=== PATIENT | male | born 1955 ===

== ENCOUNTER 2018-04-07 19:32 | Emergency (ER) | payer SELFPAY ==
[2018-04-07 19:48] VITALS: BP 137/74; PULSE 63; RESP 20; TEMP 98.8; O2SAT 97
[2018-04-07] MEDS ORDERED: Fluorescein 1 mg Ophthalmic Strip ONE (20:37)
[2018-04-07] MEDS ORDERED: Erythromycin 0.5% Ophth Oint 1 APPLIC/3.5 G OD STA (21:18)
--- NOTE | 2018-04-07 21:22 | C.PDOC ---
History Of Present Illness 62 y/o male presents to the ED complaining of foreign body sensation which has been intermittent for 4 days. States symptoms began after working on a ceiling, when patient felt like debris got in his left eye. He denies any fever, discharge, or other complaints. Time Seen by Provider: 04/07/18 20:22 Chief Complaint (Nursing): Eye Problem History Per: Patient History/Exam Limitations: no limitations Onset/Duration Of Symptoms: Days (x4) Current Symptoms Are (Timing): Still Present Past Medical History Reviewed: Historical Data, Nursing Documentation, Vital Signs Vital Signs: Last Vital Signs Temp 98.8 F 04/07/18 19:45 Pulse 63 04/07/18 19:45 Resp 20 04/07/18 19:45 BP 137/74 04/07/18 19:45 Pulse Ox 97 04/07/18 19:45 - Medical History PMH: No Chronic Diseases Surgical History: No Surg Hx Family History: States: No Known Family Hx - Social History Hx Tobacco Use: No Hx Alcohol Use: Yes Hx Substance Use: No Review Of Systems Constitutional: Negative for: Fever Eyes: Positive for: Pain, Redness, Other (Foreign body sensation - left eye). Negative for: Vision Change ENT: Negative for: Nose Congestion Respiratory: Negative for: Cough, Shortness of Breath Physical Exam - Physical Exam Appears: Non-toxic, No Acute Distress Skin: Normal Color, Warm, Dry Head: Normacephalic Eye(s): bilateral: PERRL, EOMI, left: Other (injected conjunctiva, with pterygum in the medial left eye; no FB on exam, even inverting eyelid) Nose: Normal Oral Mucosa: Moist Neurological/Psych: Oriented x3, Normal Speech, Normal Cranial Nerves Gait: Steady ED Course And Treatment O2 Sat by Pulse Oximetry: 97 (RA) Pulse Ox Interpretation: Normal Medical Decision Making Medical Decision Making: Plan: Examined eye w/ fuorescein: Scant uptake noted around the 10 oclock position Will d/c with erythromycin ointment and follow up with steam pipe fitter Disposition Counseled Patient/Family Regarding: Diagnosis, Need For Followup, Rx Given - Disposition Referrals: Randall Lewis [Staff Provider] - Disposition: HOME/ ROUTINE Disposition Time: 21:22 Condition: GOOD Additional Instructions: Seguimiento con oculista en 1-2 santos. Use jeannette cinta de media pulgada de ungento en el [place] cada 6 horas.Tylenol para el dolor si es necesario. Use gafas de segur idad cuando trabaje. Follow up with eye doctor in 1-2 days. Use one half inch ribbon of ointment in eye every 6 hours.Tylenol for pain if needed. Wear safety glasses when working. Instructions: Corneal Abrasion (DC) Forms: Gen Discharge Inst Greenlandic, [employer] (Greenlandic) Print Language: MOHAWK - Clinical Impression Clinical Impression: Corneal abrasion - PA / PUBLIC HEALTH ADVISOR / Resident Statement MD/DO has reviewed & agrees with the documentation as recorded. - Scribe Statement The provider has reviewed the documentation as recorded by the Scribe (Cici Mason) All medical record entries made by the Scribe were at my direction and personally dictated by me. I have reviewed the chart and agree that the record accurately reflects my personal performance of the history, physical exam, medical decision making, and the department course for this patient. I have also personally directed, reviewed, and agree with the discharge instructions and disposition.
[2018-04-07] MEDS ORDERED: Erythromycin 0.5% Ophth Oint 1 APPLIC/3.5 G ONE (21:26)
== END 2018-04-07 21:28 | disposition home or self-care (01) ==
LOC: C.ER 19:32
DX: S05.02XA Injury of conjunctiva and corneal abrasion without foreign body, left eye, initial encounter (principal); X58.XXXA Exposure to other specified factors, initial encounter